=== PATIENT | female | born 1975 | race Two or more races ===

== ENCOUNTER 2019-09-06 14:43 | Emergency (ER) | payer MEDICAID ==
[2019-09-06 15:36] VITALS: BP 145/71
[2019-09-06 16:01] LABS: Urine Bacteria FEW /hpf (None Seen); Urine Blood Negative /uL (Negative); Urine Hyaline Cast FEW /lpf (0 - 2); Urine Mucus FEW (None Seen); Urine Specific Gravity 1.029 (1.001-1.035); Urine WBC 2 /hpf (0 - 5)
[2019-09-06 16:34] LABS: Basophils # (auto) 0 uL; Basophils % (auto) 0.1 % (0.0-2.0); Eosinophils # (auto) 0 uL; Hematocrit 43.5 % (36.0-46.0); Hemoglobin 14.9 g/dL (12.2-16.2); Lymphocytes # (auto) 1.3 uL; Lymphocytes % (auto) 8.6 % (10.0-50.0); Mean Corpuscular Hemoglobin 33.5 pg (28.0-32.0); Mean Corpuscular Hgb Conc. 34.2 g/dL (32.0-36.0); Mean Corpuscular Volume 97.8 fL (80.0-100.0); Monocytes # (auto) 0.8 uL; Monocytes % (auto) 5.1 % (0.0-12.0); Neutrophils # (auto) 13.6 uL; Neutrophils % (auto) 86.2 % (37.0-80.0); Platelet Count (auto) 216 10^3/uL (140-450); Red Blood Cells 4.45 10^6/uL (4.0-5.20); Red Cell Distribution Width 14.4 % (11.8-14.3); White Blood Cell 15.8 10^3/uL (4.4-10.8)
[2019-09-06 17:00] LABS: Albumin 3.4 g/dL (3.4-5.0); BUN/Creatinine Ratio 17.7
[2019-09-06 17:06] LABS: Potassium 3.5 mmol/L (3.5-5.1)
[2019-09-06 17:07] LABS: Bilirubin, Total 0.7 mg/dL (0.2-1.0); Total Protein 8.2 g/dL (6.4-8.2)
== END 2019-09-06 17:25 | disposition home or self-care (01) ==
LOC: ER 14:43 → EDSEX 14:43 → ER 17:25
DX: R10.11 Right upper quadrant pain (principal); R11.0 Nausea
CPT/HCPCS: 36415; 74176; 80053; 81001; 85025

== ENCOUNTER 2020-02-13 23:15 | Emergency (ER) | payer MEDICAID ==
[~2020-02-13] VITALS: Ht 149.9 cm; Wt 68.2 kg
[2020-02-14] LABS: Urine Bacteria FEW /hpf (None Seen); Urine Blood TRACE /uL (Negative); Urine Mucus FEW (None Seen); Urine Specific Gravity 1.016 (1.001-1.035); Urine WBC 1 /hpf (0 - 5)
[2020-02-14 00:14] LABS: Basophils # (auto) 0.1 10 ^3/uL (0-0.2); Basophils % (auto) 0.5 % (0.0-2.0); Eosinophils # (auto) 0 10 ^3/uL (0-0.8); Hematocrit 45.6 % (36.0-46.0); Hemoglobin 15.2 g/dL (12.2-16.2); Lymphocytes # (auto) 0.8 10 ^3/uL (0.4-5.4); Lymphocytes % (auto) 5.4 % (10.0-50.0); Mean Corpuscular Hemoglobin 32.9 pg (28.0-32.0); Mean Corpuscular Hgb Conc. 33.4 g/dL (32.0-36.0); Mean Corpuscular Volume 98.5 fL (80.0-100.0); Monocytes # (auto) 0.3 10 ^3/uL (0-1.3); Monocytes % (auto) 2.2 % (0.0-12.0); Neutrophils # (auto) 13.2 10 ^3/uL (1.6-8.6); Neutrophils % (auto) 91.9 % (37.0-80.0); Platelet Count (auto) 212 10^3/uL (140-450); Red Blood Cells 4.63 10^6/uL (4.0-5.20); Red Cell Distribution Width 15.2 % (11.8-14.3); White Blood Cell 14.4 10^3/uL (4.4-10.8)
[2020-02-14 00:24] LABS: Albumin 3.7 g/dL (3.4-5.0); Calcium 9.1 mg/dL (8.5-10.1)
[2020-02-14 00:30] LABS: Bilirubin, Total 0.5 mg/dL (0.2-1.0); Total Protein 8.9 g/dL (6.4-8.2)
[2020-02-14] MEDS ORDERED: cefTRIAXone SOD 1,000 MG VL IM ONE (00:45)
[2020-02-14] MEDS ORDERED: LIDOCAINE 1% HCL (LOCAL ANESTH.) INJ 20ML MDV ONE (01:06)
[2020-02-14] MEDS ORDERED: ACETAMINOPHEN 325 MG TAB PO ONE (01:15)
[2020-02-14] MEDS: LIDOCAINE 1% HCL (LOCAL ANESTH.) INJ 20ML MDV ID ONE ×2 (01:23→01:30)
[2020-02-14] MEDS ORDERED: IOHEXOL 300 MG/ML 100ML BOTTLE IJ ONE (01:39)
[2020-02-14 02:57] VITALS: BP 166/89
== END 2020-02-14 03:45 | disposition home or self-care (01) ==
LOC: ER 23:16
DX: K52.89 Other specified noninfective gastroenteritis and colitis (principal); R11.2 Nausea with vomiting, unspecified
CPT/HCPCS: 36415; 74176; 74177; 80053; 81001; 85025; 96372; J0696; J2001

== ENCOUNTER 2023-03-18 05:30 | Emergency (ER) | payer MEDICAID, OTHER ==
[~2023-03-18] VITALS: Ht 149.9 cm; Wt 49.2 kg
[2023-03-18] MEDS ORDERED: SODIUM CHLORIDE 0.9% 1,000 ML IV ONE (06:45)
[2023-03-18 07:02] LABS: Basophils # (auto) 0.1 10 ^3/uL (0-0.2); Basophils % (auto) 0.7 % (0.0-2.0); Eosinophils # (auto) 0.1 10 ^3/uL (0-0.8); Eosinophils % (auto) 1.4 % (0.0-7.0); Hematocrit 46.3 % (36.0-46.0); Hemoglobin 15.7 g/dL (12.2-16.2); Lymphocytes # (auto) 2.7 10 ^3/uL (0.4-5.4); Lymphocytes % (auto) 35.4 % (10.0-50.0); Mean Corpuscular Hemoglobin 33.4 pg (28.0-32.0); Mean Corpuscular Hgb Conc. 33.9 g/dL (32.0-36.0); Mean Corpuscular Volume 98.5 fL (80.0-100.0); Monocytes # (auto) 0.6 10 ^3/uL (0-1.3); Neutrophils # (auto) 4.2 10 ^3/uL (1.6-8.6); Neutrophils % (auto) 54.5 % (37.0-80.0); Nucleated Red Blood Cells % 0.1 %; Red Blood Cells 4.69 10^6/uL (4.0-5.20); Red Cell Distribution Width 16.3 % (11.8-14.3); White Blood Cell 7.7 10^3/uL (4.4-10.8)
[2023-03-18 07:10] LABS: Albumin 3.9 g/dL (3.4-5.0); Calcium 9.2 mg/dL (8.5-10.1)
[2023-03-18 07:13] LABS: BUN/Creatinine Ratio 16.9 (10.0-20.0); Bilirubin, Total 1.2 mg/dL (0.2-1.0); Total Protein 7.8 g/dL (6.4-8.2)
[2023-03-18 08:40] LABS: Urine Bacteria FEW /hpf (None Seen); Urine Blood Negative /uL (Negative); Urine Specific Gravity 1.012 (1.001-1.035); Urine WBC 2 /hpf (0 - 5)
[2023-03-18] MEDS ORDERED: CEPH-510 PO (11:14)
[2023-03-18] MEDS ORDERED: cefTRIAXone 1GM/50ML D5W 50 ML IV ONE (11:15)
[2023-03-18 12:20] VITALS: BP 132/84
== END 2023-03-18 12:27 | disposition home or self-care (01) ==
LOC: ER 05:30
DX: N39.0 Urinary tract infection, site not specified (principal); E03.9 Hypothyroidism, unspecified; Z79.899 Other long term (current) drug therapy
CPT/HCPCS: 36415; 74176; 76705; 80053; 81001; 83690; 85025; 96361; 96365; 99285; J0696; J7030

== ENCOUNTER 2023-06-23 05:06 | Emergency (ER) | payer MEDICAID, OTHER ==
[~2023-06-23] VITALS: Ht 147.3 cm; Wt 42.9 kg
[~2023-06-23 05:06] MED LIST: CEPH-510 PO
[2023-06-23 06:21] LABS: Urine Bacteria FEW /hpf (None Seen); Urine Blood Negative /uL (Negative); Urine Clarity Clear (Clear); Urine Color Colorless (Yellow); Urine Hyaline Cast FEW /lpf (0 - 2); Urine Protein, UAD Negative (Negative); Urine Specific Gravity 1.008 (1.001-1.035); Urine Urobilinogen Normal (Negative); Urine WBC 1 /hpf (0 - 5); Urine pH 5.5 (5.0-8.0)
[2023-06-23 06:22] LABS: Basophils # (auto) 0 10 ^3/uL (0-0.2); Basophils % (auto) 0.5 % (0.0-2.0); Eosinophils # (auto) 0 10 ^3/uL (0-0.8); Eosinophils % (auto) 0.7 % (0.0-7.0); Hematocrit 45.9 % (36.0-46.0); Hemoglobin 15.8 g/dL (12.2-16.2); Lymphocytes # (auto) 2.4 10 ^3/uL (0.4-5.4); Lymphocytes % (auto) 48.5 % (10.0-50.0); Mean Corpuscular Hemoglobin 33.6 pg (28.0-32.0); Mean Corpuscular Hgb Conc. 34.3 g/dL (32.0-36.0); Mean Corpuscular Volume 97.9 fL (80.0-100.0); Monocytes # (auto) 0.3 10 ^3/uL (0-1.3); Monocytes % (auto) 6.1 % (0.0-12.0); Neutrophils # (auto) 2.2 10 ^3/uL (1.6-8.6); Neutrophils % (auto) 44.2 % (37.0-80.0); Nucleated Red Blood Cells % 0.2 %; Red Blood Cells 4.69 10^6/uL (4.0-5.20); Red Cell Distribution Width 15.4 % (11.8-14.3)
[2023-06-23 06:45] LABS: Alkaline Phosphatase 60 U/L (46-116); Anion Gap 6.7 (5-15); Aspartate Aminotransferase 15 U/L (13-40); BUN/Creatinine Ratio 6.5 (10.0-20.0); Bilirubin, Total 0.8 mg/dL (0.2-1.0); Blood Urea Nitrogen 6 mg/dL (9-23); Calcium 9.8 mg/dL (8.7-10.4); Carbon Dioxide 29.3 mmol/L (20-30); Chloride 105 mmol/L (98-107); Glucose 89 mg/dL (74-106); Lipase 35 U/L (12-53); Potassium 3.6 mmol/L (3.5-5.1); Sodium 141 mmol/L (136-145); Total Protein 7.4 g/dL (5.7-8.2)
[2023-06-23 07:05] LABS: Alanine Aminotransferase < 9 U/L (7-40)
[2023-06-23] MEDS ORDERED: ONDANSETRON HCL 4 MG/2 ML VIAL IV ONE (08:30)
[2023-06-23] MEDS ORDERED: MORPHINE SULFATE INJ 2 MG/ml SYRG IV ONE (08:30)
[2023-06-23 09:00] VITALS: PULSE 71; RESP 13; TEMP 98.3; O2SAT 98
[2023-06-23 16:00] VITALS: BP 109/76; PULSE 69; RESP 8; O2SAT 96
== END 2023-06-23 17:04 | disposition home or self-care (01) ==
LOC: ER 05:06
DX: K80.20 Calculus of gallbladder without cholecystitis without obstruction (principal); E03.9 Hypothyroidism, unspecified; Z79.2 Long term (current) use of antibiotics
CPT/HCPCS: 36415; 76705; 80053; 81001; 83690; 85025; 96374; 96375; 99285; J2270; J2405

== ENCOUNTER 2023-07-11 14:16 | Inpatient (IN) | payer MEDICAID ==
[~2023-07-11] VITALS: Ht 144.8 cm; Wt 47.0 kg
[2023-07-11] MEDS ORDERED: HYDROmorphone HCL 2 MG/ML VL/or syr IM ONE (14:45)
[2023-07-11] MEDS ORDERED: ONDANSETRON ODT 4 MG TAB PO ONE (14:45)
[2023-07-11 15:16] LABS: Hemoglobin 15.3 g/dL (12.2-16.2); Mean Corpuscular Volume 97.5 fL (80.0-100.0)
[2023-07-11 15:18] LABS: Hematocrit 44.7 % (36.0-46.0); Mean Corpuscular Hemoglobin 33.4 pg (28.0-32.0); Mean Corpuscular Hgb Conc. 34.3 g/dL (32.0-36.0); Red Blood Cells 4.59 10^6/uL (4.0-5.20); Red Cell Distribution Width 16.4 % (11.8-14.3)
[2023-07-11 15:24] LABS: White Blood Cell 32.5 10^3/uL (4.4-10.8)
[2023-07-11 15:25] LABS: Basophils % (manual) 0 (0.0-2.0); Blast Cells 0; Eosinophils % (manual) 0 (0-7); Metamyelocytes % 0; Myelocytes % 0; Promyelocytes % 0; Reactive Lymphocytes 0
[2023-07-11 15:27] LABS: Alanine Aminotransferase 16 U/L (7-40); Albumin 4.2 g/dL (3.2-4.8); Alkaline Phosphatase 112 U/L (46-116); Anion Gap 10 (5-15); Aspartate Aminotransferase 30 U/L (13-40); BUN/Creatinine Ratio 18.3 (10.0-20.0); Blood Urea Nitrogen 21 mg/dL (9-23); Carbon Dioxide 26 mmol/L (20-30); Chloride 99 mmol/L (98-107); Glucose 100 mg/dL (74-106); Lactic Acid w/Reflex 3.3 mmol/L (0.4-2.0); Lipase 29 U/L (12-53); Potassium 4.1 mmol/L (3.5-5.1); Sodium 135 mmol/L (136-145)
[2023-07-11 15:28] LABS: Bilirubin, Total 0.5 mg/dL (0.2-1.0); Total Protein 7.1 g/dL (5.7-8.2)
[2023-07-11] MEDS ORDERED: PIPERACILLIN-TAZOB 3.375GM 100 ML IV ONE (15:45)
[2023-07-11] MEDS ORDERED: SODIUM CHLORIDE 0.9% 1,000 ML IV ONE ×2 (15:45→18:30)
[2023-07-11 15:54] LABS: CRP High Sensitivity > 20.00 mg/dL (<1.0)
[2023-07-11 16:27] LABS: INR 1.15 (0.9-1.15)
[2023-07-11 16:43] LABS: Anisocytosis Slight; Band Neutrophils % (manual) 8; Lymphocytes % (manual) 6 (10.0-50.0); Monocytes % (manual) 2 (0-12); Platelet Estimate Adequate
[2023-07-11 17:35] LABS: Urine Bacteria FEW /hpf (None Seen); Urine Blood Negative /uL (Negative); Urine Clarity HAZY (Clear); Urine Color Yellow (Yellow); Urine Protein, UAD TRACE (Negative); Urine Specific Gravity 1.031 (1.001-1.035); Urine Urobilinogen Normal (Negative); Urine WBC 3 /hpf (0 - 5)
[2023-07-11] MEDS ORDERED: HYDROmorphone HCL 2 MG/ML VL/or syr IV ONE (18:45)
[2023-07-11] MEDS ORDERED: ONDANSETRON HCL 4 MG/2 ML VIAL IV ONE (18:45)
[2023-07-11 18:50] VITALS: PULSE 77; RESP 13; O2SAT 98
[2023-07-11 19:43] VITALS: PULSE 84; RESP 10; O2SAT 100
[2023-07-11] MEDS ORDERED: VANCOMYCIN PER PHARMACY 0 MG IV SCH ×2 (20:30→23:15)
[2023-07-11] MEDS ORDERED: VANCOMYCIN 500 MG in D5W 5% 100 ML IV ONE (20:45)
[2023-07-11] MEDS ORDERED: MORPHINE SULFATE INJ 2 MG/ml SYRG IV PRN (23:15)
[2023-07-11] MEDS ORDERED: NITROGLYCERIN 0.4 MG SL TAB SL PRN (23:15)
[2023-07-12] MEDS ORDERED: DEXTROSE (50%) 50ML SYRG IV PRN
[2023-07-12] MEDS: SODIUM CHLORIDE 0.9% 1,000 ML IV SCH ×3 (00:29→14:30)
[2023-07-12] MEDS: PIPERACILLIN-TAZOB 3.375GM 100 ML IV SCH ×4 (00:30→21:15)
[2023-07-12] MEDS: InsuLIN REG 1unit/0.01ml Soln (100units/ml) SC SCH ×4 (01:00→18:00)
[2023-07-12] MEDS: ACCU-CHEK COMFORT CURVE STRIP VI SCH ×4 (01:00→18:00)
[2023-07-12] MEDS ORDERED: CHOL20007 PO (04:10)
[2023-07-12] MEDS ORDERED: KET30I PO (04:11)
[2023-07-12] MEDS ORDERED: KET30I IM (04:11)
[2023-07-12] MEDS ORDERED: GABA-1250 PO (04:12)
[2023-07-12] MEDS ORDERED: LEVO150T10 PO (04:12)
[2023-07-12 06:00] VITALS: BP 125/65; PULSE 91; RESP 19; TEMP 98.4; O2SAT 98
[2023-07-12] MEDS: GABAPENTIN 300 MG CAP PO SCH ×3 (06:28→21:14)
[2023-07-12] MEDS: LEVOTHYROXINE SODIUM 50 MCG TAB PO SCH (06:28)
[2023-07-12 06:44] LABS: Alkaline Phosphatase 82 U/L (46-116); Anion Gap 5 (5-15); Blood Urea Nitrogen 10 mg/dL (9-23); Carbon Dioxide 26 mmol/L (20-30); Glucose 82 mg/dL (74-106); Potassium 3.5 mmol/L (3.5-5.1); Sodium 141 mmol/L (136-145)
[2023-07-12 06:45] LABS: Albumin 3.1 g/dL (3.2-4.8); Aspartate Aminotransferase 12 U/L (13-40); Bilirubin, Total 0.3 mg/dL (0.2-1.0); Total Protein 5.3 g/dL (5.7-8.2)
[2023-07-12 06:49] LABS: Alanine Aminotransferase < 9 U/L (7-40); Chloride 110 mmol/L (98-107)
[2023-07-12 07:28] LABS: Bilirubin, Direct 0.1 mg/dL (<0.3)
[2023-07-12 07:40] LABS: Basophils # (auto) 0 10 ^3/uL (0-0.2); Basophils % (auto) 0.2 % (0.0-2.0); Eosinophils # (auto) 0.1 10 ^3/uL (0-0.8); Eosinophils % (auto) 0.3 % (0.0-7.0); Hematocrit 37.4 % (36.0-46.0); Hemoglobin 12.6 g/dL (12.2-16.2); Lymphocytes # (auto) 1.8 10 ^3/uL (0.4-5.4); Lymphocytes % (auto) 7.5 % (10.0-50.0); Mean Corpuscular Hgb Conc. 33.8 g/dL (32.0-36.0); Mean Corpuscular Volume 97.6 fL (80.0-100.0); Monocytes # (auto) 0.8 10 ^3/uL (0-1.3); Monocytes % (auto) 3.5 % (0.0-12.0); Neutrophils # (auto) 21.3 10 ^3/uL (1.6-8.6); Neutrophils % (auto) 88.5 % (37.0-80.0); Red Blood Cells 3.83 10^6/uL (4.0-5.20); Red Cell Distribution Width 16.1 % (11.8-14.3); White Blood Cell 24.1 10^3/uL (4.4-10.8)
[2023-07-12 08:00] VITALS: PULSE 60; PULSE 63; RESP 17; O2SAT 97
[2023-07-12 09:00] VITALS: BP 140/76; PULSE 60; RESP 17; TEMP 98.2; O2SAT 97
[2023-07-12] MEDS ORDERED: VANCOMYCIN 500 MG in D5W 5% 100 ML IV SCH (09:00)
[2023-07-12] MEDS: ENOXAPARIN SOD 40 MG/0.4 ML SYRINGE SC SCH (11:02)
[2023-07-12] MEDS: MORPHINE SULFATE INJ 2 MG/ml SYRG IV PRN (11:58)
[2023-07-12 13:00] VITALS: BP 112/60; PULSE 53; RESP 14; TEMP 98.4; O2SAT 100
[2023-07-12] MEDS ORDERED: CLINIMIX PER PHARMACY 0 ML IV SCH (13:45)
[2023-07-12] MEDS ORDERED: PIPERACILLIN-TAZOB 3.375GM 100 ML IV SCH (14:00)
[2023-07-12 14:54] LABS: Phosphorus 2.6 mg/dL (2.4-5.1)
[2023-07-12 15:03] LABS: Magnesium 1.7 mg/dL (1.6-2.6); Magnesium 1.9 mg/dL (1.6-2.6)
[2023-07-12 17:00] VITALS: BP 137/78; PULSE 79; RESP 16; TEMP 98.3; O2SAT 99
[2023-07-12 20:00] VITALS: PULSE 96; RESP 18
[2023-07-12] MEDS ORDERED: AMINO ACID INFUSION IN D10W 1,000 ML IV NR (20:00)
[2023-07-12] MEDS: PANTOPRAZOLE 40 MG/10 ML VIAL INJ IV SCH (21:14)
[2023-07-13] VITALS (8 sets, daily range): BP systolic 83–133; BP diastolic 41–76; PULSE 45–62; RESP 17–22; TEMP 97.2–97.8; O2SAT 97–100
[2023-07-13] MEDS: ACETAMINOPHEN 325 MG TAB PO PRN ×2 (04:19→20:19)
[2023-07-13] MEDS: SODIUM CHLORIDE 0.9% 1,000 ML IV SCH (04:58)
[2023-07-13] MEDS: GABAPENTIN 300 MG CAP PO SCH ×3 (05:21→21:11)
[2023-07-13] MEDS: PIPERACILLIN-TAZOB 3.375GM 100 ML IV SCH (05:22)
[2023-07-13] MEDS: ACCU-CHEK COMFORT CURVE STRIP VI SCH ×5 (05:22→23:55)
[2023-07-13] MEDS: InsuLIN REG 1unit/0.01ml Soln (100units/ml) SC SCH ×5 (05:26→23:55)
[2023-07-13] MEDS: LEVOTHYROXINE SODIUM 50 MCG TAB PO SCH (06:08)
[2023-07-13 08:49] LABS: Basophils # (auto) 0.1 10 ^3/uL (0-0.2); Basophils % (auto) 0.3 % (0.0-2.0); Eosinophils # (auto) 0.1 10 ^3/uL (0-0.8); Eosinophils % (auto) 0.2 % (0.0-7.0); Hematocrit 37.3 % (36.0-46.0); Hemoglobin 12.6 g/dL (12.2-16.2); Lymphocytes # (auto) 1.9 10 ^3/uL (0.4-5.4); Lymphocytes % (auto) 7.9 % (10.0-50.0); Mean Corpuscular Hemoglobin 32.9 pg (28.0-32.0); Mean Corpuscular Hgb Conc. 33.7 g/dL (32.0-36.0); Mean Corpuscular Volume 97.8 fL (80.0-100.0); Monocytes # (auto) 1.2 10 ^3/uL (0-1.3); Monocytes % (auto) 4.9 % (0.0-12.0); Neutrophils # (auto) 20.8 10 ^3/uL (1.6-8.6); Neutrophils % (auto) 86.7 % (37.0-80.0); Red Blood Cells 3.82 10^6/uL (4.0-5.20); Red Cell Distribution Width 16.5 % (11.8-14.3); White Blood Cell 24.1 10^3/uL (4.4-10.8)
[2023-07-13 09:10] LABS: Albumin 2.7 g/dL (3.2-4.8); Alkaline Phosphatase 82 U/L (46-116); Anion Gap 3 (5-15); Aspartate Aminotransferase 11 U/L (13-40); BUN/Creatinine Ratio 6.7 (10.0-20.0); Blood Urea Nitrogen 6 mg/dL (9-23); Calcium 8.1 mg/dL (8.7-10.4); Carbon Dioxide 29 mmol/L (20-30); Chloride 108 mmol/L (98-107); Glucose 110 mg/dL (74-106); Magnesium 1.8 mg/dL (1.6-2.6); Phosphorus 2.7 mg/dL (2.4-5.1); Potassium 3.4 mmol/L (3.5-5.1); Sodium 140 mmol/L (136-145)
[2023-07-13 09:11] LABS: Bilirubin, Total 0.4 mg/dL (0.2-1.0); Total Protein 5.3 g/dL (5.7-8.2)
[2023-07-13 09:14] LABS: Alanine Aminotransferase < 9 U/L (7-40)
[2023-07-13] MEDS ORDERED: POTASSIUM CHL 20MEQ/100ML 100 ML IV ONE (10:00)
[2023-07-13] MEDS: PANTOPRAZOLE 40 MG/10 ML VIAL INJ IV SCH ×2 (11:05→21:11)
[2023-07-13] MEDS: ENOXAPARIN SOD 40 MG/0.4 ML SYRINGE SC SCH (11:05)
[2023-07-13] MEDS: SOD CHL 0.9%/ KCL 20MEQ 1,000 ML IV SCH (14:32)
[2023-07-13] MEDS: VANCOMYCIN HCL 500MG/5ML ORAL SOL PO SCH ×2 (17:18→21:11)
[2023-07-13] MEDS: AMINO ACID INFUSION IN D10W 1,000 ML IV NR (19:47)
[2023-07-14] VITALS (8 sets, daily range): BP systolic 116–131; BP diastolic 64–83; PULSE 44–100; RESP 16–98; TEMP 97–98.6; O2SAT 90–99
[2023-07-14] MEDS: ACETAMINOPHEN 325 MG TAB PO PRN (02:24)
[2023-07-14] MEDS: VANCOMYCIN HCL 500MG/5ML ORAL SOL PO SCH ×4 (05:14→21:31)
[2023-07-14] MEDS: GABAPENTIN 300 MG CAP PO SCH ×3 (05:14→21:30)
[2023-07-14] MEDS: ACCU-CHEK COMFORT CURVE STRIP VI SCH ×3 (05:14→18:17)
[2023-07-14] MEDS: InsuLIN REG 1unit/0.01ml Soln (100units/ml) SC SCH ×3 (05:21→18:00)
[2023-07-14] MEDS: LEVOTHYROXINE SODIUM 50 MCG TAB PO SCH (05:56)
[2023-07-14 09:25] LABS: Hematocrit 38.8 % (36.0-46.0); Mean Corpuscular Hemoglobin 32.9 pg (28.0-32.0); Mean Corpuscular Hgb Conc. 33.5 g/dL (32.0-36.0); Mean Corpuscular Volume 98.5 fL (80.0-100.0); Red Blood Cells 3.94 10^6/uL (4.0-5.20); Red Cell Distribution Width 16.9 % (11.8-14.3)
[2023-07-14 09:26] LABS: Basophils % (manual) 0 (0.0-2.0); Blast Cells 0; Eosinophils % (manual) 0 (0-7); Metamyelocytes % 0; Myelocytes % 0; Promyelocytes % 0; Reactive Lymphocytes 0
[2023-07-14] MEDS: PANTOPRAZOLE 40 MG/10 ML VIAL INJ IV SCH ×2 (09:45→21:30)
[2023-07-14] MEDS: SOD CHL 0.9%/ KCL 20MEQ 1,000 ML IV SCH (09:45)
[2023-07-14] MEDS: ENOXAPARIN SOD 40 MG/0.4 ML SYRINGE SC SCH (09:45)
[2023-07-14 10:01] LABS: Band Neutrophils % (manual) 2; Lymphocytes % (manual) 14 (10.0-50.0); Monocytes % (manual) 2 (0-12)
[2023-07-14 10:02] LABS: Platelet Estimate Adequate
[2023-07-14 10:15] LABS: Albumin 2.9 g/dL (3.2-4.8); Alkaline Phosphatase 75 U/L (46-116); Anion Gap 4 (5-15); Aspartate Aminotransferase 14 U/L (13-40); Calcium 8.4 mg/dL (8.7-10.4); Carbon Dioxide 27 mmol/L (20-30); Chloride 110 mmol/L (98-107); Glucose 93 mg/dL (74-106); Magnesium 1.7 mg/dL (1.6-2.6); Potassium 3.5 mmol/L (3.5-5.1); Sodium 141 mmol/L (136-145)
[2023-07-14 10:16] LABS: Bilirubin, Total 0.3 mg/dL (0.2-1.0); Total Protein 5.6 g/dL (5.7-8.2)
[2023-07-14 10:17] LABS: Alanine Aminotransferase < 9 U/L (7-40); BUN/Creatinine Ratio 8.3 (10.0-20.0); Blood Urea Nitrogen < 5 mg/dL (9-23)
[2023-07-14] MEDS ORDERED: POTASSIUM PHOSPHATE 44 MEQ in D5W 5% 250 ML IV ONE (13:00)
[2023-07-14] MEDS: AMINO ACID INFUSION IN D10W 1,000 ML IV NR (19:29)
[2023-07-15] VITALS (7 sets, daily range): BP systolic 108–134; BP diastolic 60–82; PULSE 42–80; RESP 16–22; TEMP 97.1–98.3; O2SAT 99–100
[2023-07-15] MEDS: ACCU-CHEK COMFORT CURVE STRIP VI SCH ×4 (00:21→17:28)
[2023-07-15] MEDS: VANCOMYCIN HCL 500MG/5ML ORAL SOL PO SCH ×4 (05:03→21:44)
[2023-07-15] MEDS: GABAPENTIN 300 MG CAP PO SCH ×3 (05:03→21:44)
[2023-07-15] MEDS: InsuLIN REG 1unit/0.01ml Soln (100units/ml) SC SCH ×4 (05:15→17:28)
[2023-07-15] MEDS: LEVOTHYROXINE SODIUM 50 MCG TAB PO SCH (05:50)
[2023-07-15] MEDS: SOD CHL 0.9%/ KCL 20MEQ 1,000 ML IV SCH (06:00)
[2023-07-15 06:34] LABS: Hematocrit 38.1 % (36.0-46.0); Hemoglobin 13.2 g/dL (12.2-16.2); Mean Corpuscular Hemoglobin 33.4 pg (28.0-32.0); Mean Corpuscular Hgb Conc. 34.7 g/dL (32.0-36.0); Mean Corpuscular Volume 96.3 fL (80.0-100.0); Red Blood Cells 3.95 10^6/uL (4.0-5.20); Red Cell Distribution Width 16.3 % (11.8-14.3); White Blood Cell 9.2 10^3/uL (4.4-10.8)
[2023-07-15 06:44] LABS: Basophils % (manual) 0 (0.0-2.0); Blast Cells 0; Eosinophils % (manual) 0 (0-7); Metamyelocytes % 0; Myelocytes % 0; Promyelocytes % 0; Reactive Lymphocytes 0
[2023-07-15 06:53] LABS: Alkaline Phosphatase 68 U/L (46-116); Anion Gap 4 (5-15); BUN/Creatinine Ratio 10.8 (10.0-20.0); Blood Urea Nitrogen 7 mg/dL (9-23); Calcium 8.4 mg/dL (8.7-10.4); Carbon Dioxide 30 mmol/L (20-30); Chloride 107 mmol/L (98-107); Glucose 109 mg/dL (74-106); Magnesium 1.7 mg/dL (1.6-2.6); Sodium 141 mmol/L (136-145)
[2023-07-15 06:54] LABS: Albumin 2.9 g/dL (3.2-4.8)
[2023-07-15 06:55] LABS: Alanine Aminotransferase < 9 U/L (7-40); Aspartate Aminotransferase 11 U/L (13-40); Bilirubin, Total 0.3 mg/dL (0.2-1.0); Phosphorus 1.4 mg/dL (2.4-5.1); Total Protein 5.6 g/dL (5.7-8.2)
[2023-07-15 06:57] LABS: Potassium 2.9 mmol/L (3.5-5.1)
[2023-07-15 07:43] LABS: Band Neutrophils % (manual) 12; Lymphocytes % (manual) 21 (10.0-50.0); Monocytes % (manual) 2 (0-12); Platelet Estimate Adequate
[2023-07-15] MEDS ORDERED: POTASSIUM CHLORIDE 40 MEQ, LIDOCAINE 1% (LOCAL ANESTH.) 4 ML in SODIUM CHL 0.9% 250 ML IV ONE (09:30)
[2023-07-15] MEDS: MORPHINE SULFATE INJ 2 MG/ml SYRG IV PRN (12:30)
[2023-07-15] MEDS ORDERED: MORPHINE SULFATE INJ 2 MG/ml SYRG IV ONE (12:45)
[2023-07-15] MEDS: PANTOPRAZOLE 40 MG/10 ML VIAL INJ IV SCH ×2 (13:44→21:43)
[2023-07-15] MEDS: ENOXAPARIN SOD 40 MG/0.4 ML SYRINGE SC SCH (13:44)
[2023-07-15] MEDS ORDERED: POTASSIUM PHOSPHATE 44 MEQ in D5W 5% 250 ML IV ONE (14:30)
[2023-07-15] MEDS: MAGNESIUM SULFATE 1GM/100ML 100 ML IV SCH ×2 (20:00→21:36)
[2023-07-15] MEDS ORDERED: AMINO ACID INFUSION IN D10W 1,000 ML IV NR (20:00)
[2023-07-16] VITALS (7 sets, daily range): BP systolic 107–126; BP diastolic 54–74; PULSE 45–100; RESP 17–18; TEMP 96.3–98.2; O2SAT 93–100
[2023-07-16] MEDS: SOD CHL 0.9%/ KCL 20MEQ 1,000 ML IV SCH (02:00)
[2023-07-16] MEDS: LEVOTHYROXINE SODIUM 50 MCG TAB PO SCH (06:47)
[2023-07-16] MEDS: GABAPENTIN 300 MG CAP PO SCH ×3 (06:47→21:26)
[2023-07-16] MEDS: InsuLIN REG 1unit/0.01ml Soln (100units/ml) SC SCH ×4 (06:48→17:53)
[2023-07-16] MEDS: ACCU-CHEK COMFORT CURVE STRIP VI SCH ×4 (06:48→17:52)
[2023-07-16] MEDS: VANCOMYCIN HCL 500MG/5ML ORAL SOL PO SCH ×4 (06:48→21:26)
[2023-07-16 09:36] LABS: INR 1.13 (0.9-1.15); Prothrombin Time 11.8 sec (9.3-11.8)
[2023-07-16 09:55] LABS: Hematocrit 40.6 % (36.0-46.0); Hemoglobin 13.4 g/dL (12.2-16.2); Mean Corpuscular Hemoglobin 32.8 pg (28.0-32.0); Mean Corpuscular Hgb Conc. 33.1 g/dL (32.0-36.0); Mean Corpuscular Volume 99.4 fL (80.0-100.0); Red Blood Cells 4.09 10^6/uL (4.0-5.20); Red Cell Distribution Width 16.6 % (11.8-14.3); White Blood Cell 7.3 10^3/uL (4.4-10.8)
[2023-07-16 09:58] LABS: Alkaline Phosphatase 57 U/L (46-116); Anion Gap 6 (5-15); Aspartate Aminotransferase 19 U/L (13-40); Calcium 8.4 mg/dL (8.5-10.1); Carbon Dioxide 27 mmol/L (20-30); Chloride 110 mmol/L (98-107); Glucose 119 mg/dL (74-106); Potassium 4.2 mmol/L (3.5-5.1); Sodium 143 mmol/L (136-145)
[2023-07-16 09:59] LABS: Bilirubin, Total 0.3 mg/dL (0.2-1.0); Phosphorus 4.2 mg/dL (2.4-5.1); Total Protein 5.7 g/dL (5.7-8.2)
[2023-07-16 10:15] LABS: Magnesium 2.1 mg/dL (1.6-2.6)
[2023-07-16 10:25] LABS: Alanine Aminotransferase < 9 U/L (7-40); BUN/Creatinine Ratio 9.4 (10.0-20.0); Blood Urea Nitrogen < 5 mg/dL (9-23)
[2023-07-16 10:28] LABS: Basophils % (manual) 0 (0.0-2.0); Blast Cells 0; Myelocytes % 0; Promyelocytes % 0; Reactive Lymphocytes 0
[2023-07-16] MEDS: ENOXAPARIN SOD 40 MG/0.4 ML SYRINGE SC SCH (11:06)
[2023-07-16] MEDS: PANTOPRAZOLE 40 MG/10 ML VIAL INJ IV SCH (11:07)
[2023-07-16] MEDS: MORPHINE SULFATE INJ 2 MG/ml SYRG IV PRN (11:29)
[2023-07-16 11:58] LABS: Band Neutrophils % (manual) 6; Eosinophils % (manual) 2 (0-7); Lymphocytes % (manual) 25 (10.0-50.0); Metamyelocytes % 3; Monocytes % (manual) 6 (0-12)
[2023-07-16 11:59] LABS: Platelet Estimate Adequate
[2023-07-17] MEDS: GABAPENTIN 300 MG CAP PO SCH ×4 (05:31→21:25)
[2023-07-17] MEDS: VANCOMYCIN HCL 500MG/5ML ORAL SOL PO SCH ×2 (05:31→11:42)
[2023-07-17] MEDS: InsuLIN REG 1unit/0.01ml Soln (100units/ml) SC SCH ×4 (05:49→17:44)
[2023-07-17] MEDS: ACCU-CHEK COMFORT CURVE STRIP VI SCH ×4 (05:49→17:37)
[2023-07-17 05:52] VITALS: BP 131/76; PULSE 49; RESP 18; TEMP 98.1; O2SAT 100
[2023-07-17] MEDS: LEVOTHYROXINE SODIUM 50 MCG TAB PO SCH (06:00)
[2023-07-17 08:00] VITALS: PULSE 37; PULSE 68; RESP 16
[2023-07-17 08:40] VITALS: BP 118/64; PULSE 56; RESP 16; TEMP 97.5; O2SAT 100
[2023-07-17] MEDS: ENOXAPARIN SOD 40 MG/0.4 ML SYRINGE SC SCH (09:06)
[2023-07-17] MEDS ORDERED: HYDROcodone-ACET 5/325MG TAB PO PRN (12:00)
[2023-07-17 12:40] VITALS: BP 120/68; PULSE 52; RESP 16; TEMP 97.6; O2SAT 100
[2023-07-17] MEDS: HYDROcodone-ACET 5/325MG TAB PO PRN ×2 (12:41→22:15)
[2023-07-17] MEDS: VANCOMYCIN HCL 125MG/5ML ORAL SOL PO SCH ×2 (17:45→21:25)
[2023-07-17 20:00] VITALS: PULSE 55
[2023-07-18] VITALS (7 sets, daily range): BP systolic 112–139; BP diastolic 54–98; PULSE 42–75; RESP 16–19; TEMP 98.1–98.5; O2SAT 95–100
[2023-07-18] MEDS: InsuLIN REG 1unit/0.01ml Soln (100units/ml) SC SCH ×5 (05:53→23:18)
[2023-07-18] MEDS: VANCOMYCIN HCL 125MG/5ML ORAL SOL PO SCH ×4 (05:53→21:45)
[2023-07-18] MEDS: GABAPENTIN 300 MG CAP PO SCH ×3 (05:53→21:45)
[2023-07-18] MEDS: ACCU-CHEK COMFORT CURVE STRIP VI SCH ×5 (05:53→23:18)
[2023-07-18] MEDS: LEVOTHYROXINE SODIUM 50 MCG TAB PO SCH (05:53)
[2023-07-18] MEDS: ONDANSETRON HCL 4 MG/2 ML VIAL IV PRN ×2 (08:16→23:18)
[2023-07-18] MEDS: MORPHINE SULFATE INJ 2 MG/ml SYRG IV PRN (08:17)
[2023-07-18 08:38] LABS: Alanine Aminotransferase 20 U/L (7-40); Alkaline Phosphatase 69 U/L (46-116); Anion Gap 5 (5-15); Aspartate Aminotransferase 32 U/L (13-40); BUN/Creatinine Ratio 14.3 (10.0-20.0); Blood Urea Nitrogen 7 mg/dL (9-23); Calcium 8.5 mg/dL (8.5-10.1); Carbon Dioxide 28 mmol/L (20-30); Chloride 109 mmol/L (98-107); Glucose 85 mg/dL (74-106); Potassium 4.3 mmol/L (3.5-5.1); Sodium 142 mmol/L (136-145)
[2023-07-18 08:39] LABS: Bilirubin, Total 0.5 mg/dL (0.2-1.0); Total Protein 5.6 g/dL (5.7-8.2)
[2023-07-18 08:40] LABS: Basophils # (auto) 0.1 10 ^3/uL (0-0.2); Basophils % (auto) 0.8 % (0.0-2.0); Eosinophils # (auto) 0.1 10 ^3/uL (0-0.8); Hematocrit 39.8 % (36.0-46.0); Hemoglobin 13.6 g/dL (12.2-16.2); Lymphocytes # (auto) 1.1 10 ^3/uL (0.4-5.4); Lymphocytes % (auto) 16.1 % (10.0-50.0); Mean Corpuscular Hemoglobin 33.3 pg (28.0-32.0); Mean Corpuscular Hgb Conc. 34.1 g/dL (32.0-36.0); Mean Corpuscular Volume 97.7 fL (80.0-100.0); Monocytes # (auto) 0.4 10 ^3/uL (0-1.3); Monocytes % (auto) 6.3 % (0.0-12.0); Neutrophils % (auto) 75.8 % (37.0-80.0); Nucleated Red Blood Cells % 0.1 %; Red Blood Cells 4.07 10^6/uL (4.0-5.20); Red Cell Distribution Width 16.5 % (11.8-14.3); White Blood Cell 6.6 10^3/uL (4.4-10.8)
[2023-07-18] MEDS: ENOXAPARIN SOD 40 MG/0.4 ML SYRINGE SC SCH (10:24)
[2023-07-18] MEDS: HYDROcodone-ACET 5/325MG TAB PO PRN ×2 (15:51→23:18)
[2023-07-18] MEDS ORDERED: TPN PER PHARMACY 0 ML IV SCH (16:00)
[2023-07-18] MEDS ORDERED: AMINO ACID INFUSION IN D10W 1,000 ML IV NR (20:00)
[2023-07-19] VITALS (7 sets, daily range): BP systolic 107–149; BP diastolic 63–97; PULSE 46–109; RESP 15–20; TEMP 98.1–102.7; O2SAT 93–100
[2023-07-19] MEDS: ACCU-CHEK COMFORT CURVE STRIP VI SCH ×4 (05:16→23:29)
[2023-07-19] MEDS: VANCOMYCIN HCL 125MG/5ML ORAL SOL PO SCH ×4 (05:16→22:41)
[2023-07-19] MEDS: GABAPENTIN 300 MG CAP PO SCH ×3 (05:16→22:41)
[2023-07-19] MEDS: LEVOTHYROXINE SODIUM 50 MCG TAB PO SCH (05:16)
[2023-07-19] MEDS: InsuLIN REG 1unit/0.01ml Soln (100units/ml) SC SCH ×4 (05:16→23:29)
[2023-07-19] MEDS: HYDROcodone-ACET 5/325MG TAB PO PRN ×2 (05:17→12:59)
[2023-07-19 05:56] LABS: Basophils # (auto) 0.1 10 ^3/uL (0-0.2); Basophils % (auto) 0.8 % (0.0-2.0); Eosinophils # (auto) 0 10 ^3/uL (0-0.8); Eosinophils % (auto) 0.3 % (0.0-7.0); Hematocrit 34.8 % (36.0-46.0); Hemoglobin 11.8 g/dL (12.2-16.2); Lymphocytes # (auto) 0.8 10 ^3/uL (0.4-5.4); Lymphocytes % (auto) 12.1 % (10.0-50.0); Mean Corpuscular Hemoglobin 32.8 pg (28.0-32.0); Mean Corpuscular Hgb Conc. 33.9 g/dL (32.0-36.0); Mean Corpuscular Volume 96.7 fL (80.0-100.0); Monocytes # (auto) 0.3 10 ^3/uL (0-1.3); Monocytes % (auto) 5.2 % (0.0-12.0); Neutrophils # (auto) 5.2 10 ^3/uL (1.6-8.6); Neutrophils % (auto) 81.6 % (37.0-80.0); Nucleated Red Blood Cells % 0.1 %; Red Cell Distribution Width 15.9 % (11.8-14.3); White Blood Cell 6.3 10^3/uL (4.4-10.8)
[2023-07-19 06:02] LABS: Alanine Aminotransferase 15 U/L (7-40); Albumin 2.9 g/dL (3.2-4.8); Alkaline Phosphatase 65 U/L (46-116); Anion Gap 3 (5-15); Aspartate Aminotransferase 26 U/L (13-40); BUN/Creatinine Ratio 7.1 (10.0-20.0); Blood Urea Nitrogen 5 mg/dL (9-23); Calcium 8.4 mg/dL (8.5-10.1); Carbon Dioxide 31 mmol/L (20-30); Chloride 104 mmol/L (98-107); Glucose 105 mg/dL (74-106); Potassium 3.8 mmol/L (3.5-5.1); Sodium 138 mmol/L (136-145)
[2023-07-19 06:03] LABS: Bilirubin, Total 0.3 mg/dL (0.2-1.0); Phosphorus 3.3 mg/dL (2.4-5.1); Total Protein 5.5 g/dL (5.7-8.2)
[2023-07-19 06:13] LABS: INR 1.23 (0.9-1.15); Prothrombin Time 12.7 sec (9.3-11.8)
[2023-07-19 06:29] LABS: Magnesium 1.6 mg/dL (1.6-2.6)
[2023-07-19 07:39] LABS: Triglycerides 74 mg/dL (< 150)
[2023-07-19] MEDS: ENOXAPARIN SOD 40 MG/0.4 ML SYRINGE SC SCH (10:11)
[2023-07-19] MEDS: cefTRIAXone 1GM/50ML D5W 50 ML IV SCH (10:12)
[2023-07-19] MEDS: MAGNESIUM SULFATE 1GM/100ML 100 ML IV SCH ×2 (11:45→13:02)
[2023-07-19] MEDS ORDERED: LIDOCAINE 1% (LOCAL ANESTH.) PF 5ml SDV ID ONE (19:30)
[2023-07-19] MEDS ORDERED: TPN PER PHARMACY IV NR ×9 (20:00)
[2023-07-19] MEDS: ACETAMINOPHEN 325 MG TAB PO PRN (20:30)
[2023-07-19] MEDS: SODIUM CHLOR 0.9% PF (SALINE LOCK) 10ML VIAL/SYR IV SCH (22:00)
[2023-07-19] MEDS: metroNIDAZOLE 500 MG TAB PO SCH (22:41)
[2023-07-20] VITALS (7 sets, daily range): BP systolic 90–115; BP diastolic 45–73; PULSE 47–98; RESP 16–18; TEMP 97.7–98.4; O2SAT 93–100
[2023-07-20] MEDS: SODIUM CHLORIDE 0.9% 1,000 ML IV SCH ×2 (05:00→20:33)
[2023-07-20] MEDS ORDERED: SODIUM CHLORIDE 0.9% 500 ML IV ONE (05:00)
[2023-07-20] MEDS: InsuLIN REG 1unit/0.01ml Soln (100units/ml) SC SCH ×3 (05:31→17:04)
[2023-07-20] MEDS: ACCU-CHEK COMFORT CURVE STRIP VI SCH ×4 (05:31→23:59)
[2023-07-20] MEDS: VANCOMYCIN HCL 125MG/5ML ORAL SOL PO SCH ×4 (05:51→21:25)
[2023-07-20] MEDS: GABAPENTIN 300 MG CAP PO SCH ×3 (05:51→21:24)
[2023-07-20] MEDS: metroNIDAZOLE 500 MG TAB PO SCH ×3 (05:51→21:24)
[2023-07-20] MEDS: LEVOTHYROXINE SODIUM 50 MCG TAB PO SCH (05:52)
[2023-07-20 06:46] LABS: Alanine Aminotransferase 12 U/L (7-40); Alkaline Phosphatase 72 U/L (46-116); Anion Gap 2 (5-15); Aspartate Aminotransferase 21 U/L (13-40); BUN/Creatinine Ratio 12.9 (10.0-20.0); Blood Urea Nitrogen 8 mg/dL (9-23); Calcium 7.8 mg/dL (8.7-10.4); Carbon Dioxide 32 mmol/L (20-30); Chloride 103 mmol/L (98-107); Glucose 99 mg/dL (74-106); Magnesium 2.2 mg/dL (1.6-2.6); Sodium 137 mmol/L (136-145)
[2023-07-20 06:47] LABS: Bilirubin, Total 0.2 mg/dL (0.2-1.0); Phosphorus 3.4 mg/dL (2.4-5.1); Total Protein 5.7 g/dL (5.7-8.2)
[2023-07-20] MEDS: cefTRIAXone 1GM/50ML D5W 50 ML IV SCH (10:08)
[2023-07-20] MEDS: ENOXAPARIN SOD 40 MG/0.4 ML SYRINGE SC SCH (10:09)
[2023-07-20] MEDS: SODIUM CHLOR 0.9% PF (SALINE LOCK) 10ML VIAL/SYR IV SCH ×2 (10:09→20:33)
[2023-07-20] MEDS: ONDANSETRON HCL 4 MG/2 ML VIAL IV PRN (12:40)
[2023-07-20] MEDS: HYDROcodone-ACET 5/325MG TAB PO PRN ×2 (14:55→21:33)
[2023-07-20] MEDS ORDERED: FAT EMULSION IV NR ×11 (20:00)
[2023-07-20] MEDS ORDERED: SODIUM CHLORIDE IV NR ×11 (20:00)
[2023-07-20] MEDS ORDERED: [UNRECOGNIZED DRUG - OTHER] IV NR ×11 (20:00)
[2023-07-20] MEDS ORDERED: POTASSIUM CHLORIDE IV NR ×11 (20:00)
[2023-07-21] VITALS (7 sets, daily range): BP systolic 106–138; BP diastolic 47–77; PULSE 51–79; RESP 17–20; TEMP 97.8–98.8; O2SAT 93–100
[2023-07-21] MEDS: InsuLIN REG 1unit/0.01ml Soln (100units/ml) SC SCH ×3 (06:00→12:00)
[2023-07-21] MEDS: GABAPENTIN 300 MG CAP PO SCH ×3 (06:03→21:46)
[2023-07-21] MEDS: metroNIDAZOLE 500 MG TAB PO SCH ×3 (06:03→21:46)
[2023-07-21] MEDS: LEVOTHYROXINE SODIUM 50 MCG TAB PO SCH (06:03)
[2023-07-21] MEDS: VANCOMYCIN HCL 125MG/5ML ORAL SOL PO SCH ×4 (06:04→21:48)
[2023-07-21] MEDS: ACCU-CHEK COMFORT CURVE STRIP VI SCH ×2 (06:08→12:00)
[2023-07-21] MEDS: ENOXAPARIN SOD 40 MG/0.4 ML SYRINGE SC SCH (08:51)
[2023-07-21] MEDS: SODIUM CHLOR 0.9% PF (SALINE LOCK) 10ML VIAL/SYR IV SCH ×2 (08:51→20:54)
[2023-07-21] MEDS: HYDROcodone-ACET 5/325MG TAB PO PRN ×3 (08:52→21:47)
[2023-07-21 08:56] LABS: Alanine Aminotransferase 11 U/L (7-40); Albumin 3.2 g/dL (3.2-4.8); Alkaline Phosphatase 64 U/L (46-116); Anion Gap 3 (5-15); Aspartate Aminotransferase 20 U/L (13-40); BUN/Creatinine Ratio 13.4 (10.0-20.0); Blood Urea Nitrogen 9 mg/dL (9-23); Calcium 8.2 mg/dL (8.7-10.4); Carbon Dioxide 29 mmol/L (20-30); Chloride 106 mmol/L (98-107); Glucose 89 mg/dL (74-106); Magnesium 2.2 mg/dL (1.6-2.6); Sodium 138 mmol/L (136-145)
[2023-07-21 08:57] LABS: Bilirubin, Total 0.2 mg/dL (0.2-1.0); Total Protein 6.1 g/dL (5.7-8.2)
[2023-07-21] MEDS: cefTRIAXone 1GM/50ML D5W 50 ML IV SCH (09:50)
[2023-07-21] MEDS: ONDANSETRON HCL 4 MG/2 ML VIAL IV PRN ×3 (09:58→21:48)
[2023-07-21] MEDS ORDERED: [UNRECOGNIZED DRUG - OTHER] IV NR ×10 (20:00)
[2023-07-21] MEDS ORDERED: SODIUM CHLORIDE IV NR ×10 (20:00)
[2023-07-21] MEDS ORDERED: POTASSIUM PHOSPHATE IV NR ×10 (20:00)
[2023-07-21] MEDS ORDERED: FAT EMULSION IV NR ×10 (20:00)
[2023-07-21] MEDS: SODIUM CHLORIDE 0.9% 1,000 ML IV SCH (21:00)
[2023-07-21] MEDS ORDERED: ONDANSETRON HCL 4 MG/2 ML VIAL ONE (21:40)
[2023-07-22 05:33] VITALS: BP 106/56; PULSE 58; RESP 18; TEMP 98.4; O2SAT 98
[2023-07-22] MEDS: GABAPENTIN 300 MG CAP PO SCH ×3 (06:00→22:18)
[2023-07-22] MEDS: metroNIDAZOLE 500 MG TAB PO SCH ×3 (06:00→22:18)
[2023-07-22] MEDS: VANCOMYCIN HCL 125MG/5ML ORAL SOL PO SCH ×4 (06:01→22:19)
[2023-07-22] MEDS: LEVOTHYROXINE SODIUM 50 MCG TAB PO SCH (06:02)
[2023-07-22] MEDS: HYDROcodone-ACET 5/325MG TAB PO PRN ×3 (06:05→22:18)
[2023-07-22 08:48] LABS: Alanine Aminotransferase 12 U/L (7-40); Albumin 2.8 g/dL (3.2-4.8); Alkaline Phosphatase 51 U/L (46-116); Anion Gap 5 (5-15); Aspartate Aminotransferase 22 U/L (13-40); BUN/Creatinine Ratio 16.2 (10.0-20.0); Blood Urea Nitrogen 11 mg/dL (9-23); Calcium 7.9 mg/dL (8.5-10.1); Carbon Dioxide 28 mmol/L (20-30); Chloride 104 mmol/L (98-107); Glucose 108 mg/dL (74-106); Potassium 3.9 mmol/L (3.5-5.1); Sodium 137 mmol/L (136-145)
[2023-07-22 08:49] LABS: Bilirubin, Total 0.2 mg/dL (0.2-1.0); Phosphorus 3.3 mg/dL (2.4-5.1); Total Protein 5.4 g/dL (5.7-8.2)
[2023-07-22 09:00] VITALS: BP 98/47; PULSE 56; RESP 18; TEMP 98; O2SAT 93
[2023-07-22] MEDS ORDERED: VANC125C3 PO (09:08)
[2023-07-22 09:12] LABS: Magnesium 1.7 mg/dL (1.6-2.6)
[2023-07-22] MEDS: ENOXAPARIN SOD 40 MG/0.4 ML SYRINGE SC SCH (09:38)
[2023-07-22] MEDS: cefTRIAXone 1GM/50ML D5W 50 ML IV SCH (09:38)
[2023-07-22] MEDS: SODIUM CHLOR 0.9% PF (SALINE LOCK) 10ML VIAL/SYR IV SCH ×2 (09:38→22:19)
[2023-07-22 13:00] VITALS: BP 120/72; PULSE 54; RESP 18; TEMP 97.8; O2SAT 100
[2023-07-22] MEDS: ONDANSETRON HCL 4 MG/2 ML VIAL IV PRN ×2 (16:46→22:18)
[2023-07-22] MEDS: SODIUM CHLORIDE 0.9% 1,000 ML IV SCH (16:51)
[2023-07-22 17:00] VITALS: BP 123/69; PULSE 68; RESP 20; TEMP 97.8; O2SAT 98
[2023-07-22 20:00] VITALS: PULSE 58; RESP 16; O2SAT 97
[2023-07-22] MEDS ORDERED: TPN PER PHARMACY IV NR ×10 (20:00)
[2023-07-22 23:44] VITALS: BP 126/66; PULSE 54; RESP 18; TEMP 98.3; O2SAT 97
[2023-07-23] MEDS: HYDROcodone-ACET 5/325MG TAB PO PRN ×2 (04:00→11:52)
[2023-07-23 04:54] VITALS: BP 104/53; PULSE 54; RESP 18; TEMP 98.3; O2SAT 92
[2023-07-23] MEDS: VANCOMYCIN HCL 125MG/5ML ORAL SOL PO SCH ×2 (06:03→11:53)
[2023-07-23] MEDS: metroNIDAZOLE 500 MG TAB PO SCH (06:03)
[2023-07-23] MEDS: LEVOTHYROXINE SODIUM 50 MCG TAB PO SCH (06:03)
[2023-07-23] MEDS: GABAPENTIN 300 MG CAP PO SCH (06:03)
[2023-07-23] MEDS: SODIUM CHLORIDE 0.9% 1,000 ML IV SCH (06:09)
[2023-07-23 06:46] LABS: Alanine Aminotransferase 16 U/L (7-40); Albumin 3.3 g/dL (3.2-4.8); Alkaline Phosphatase 71 U/L (46-116); Anion Gap 4 (5-15); Aspartate Aminotransferase 31 U/L (13-40); BUN/Creatinine Ratio 15.5 (10.0-20.0); Blood Urea Nitrogen 11 mg/dL (9-23); Calcium 8.3 mg/dL (8.7-10.4); Carbon Dioxide 29 mmol/L (20-30); Chloride 105 mmol/L (98-107); Glucose 93 mg/dL (74-106); Phosphorus 3.7 mg/dL (2.4-5.1); Potassium 3.9 mmol/L (3.5-5.1); Sodium 138 mmol/L (136-145)
[2023-07-23 06:47] LABS: Bilirubin, Total 0.2 mg/dL (0.2-1.0); Total Protein 6.1 g/dL (5.7-8.2)
[2023-07-23 07:30] VITALS: PULSE 59
[2023-07-23 08:00] VITALS: PULSE 64; RESP 18; O2SAT 95
[2023-07-23 09:00] VITALS: BP 117/74; PULSE 64; RESP 18; TEMP 98; O2SAT 95
[2023-07-23] MEDS: ENOXAPARIN SOD 40 MG/0.4 ML SYRINGE SC SCH (09:43)
[2023-07-23] MEDS: SODIUM CHLOR 0.9% PF (SALINE LOCK) 10ML VIAL/SYR IV SCH (09:44)
[2023-07-23] MEDS: cefTRIAXone 1GM/50ML D5W 50 ML IV SCH (09:44)
[2023-07-23 10:25] VITALS: BP 117/74; PULSE 64; RESP 18; TEMP 98; O2SAT 95
[2023-07-23] MEDS: ONDANSETRON HCL 4 MG/2 ML VIAL IV PRN (11:52)
[2023-07-23] MEDS ORDERED: LACTCAP20 PO (12:59)
[2023-07-23] MEDS ORDERED: TPN PER PHARMACY IV NR ×10 (20:00)
== END 2023-07-23 12:35 | disposition home health service (06) | DRG 248 ==
LOC: ER 14:16 → TELE 23:23 → TELE-CENTR 07-12 03:22
PROVIDERS: ADMIT Nurse Practitioner Family; ATTEND Hospitalist
PROC: 02HV33Z Insertion of Infusion Device into Superior Vena Cava, Percutaneous Approach (ICD-10-PCS; principal; 2023-07-19)
PROC: B548ZZA Ultrasonography of Superior Vena Cava, Guidance (ICD-10-PCS; 2023-07-19)
DX: A04.72 Enterocolitis due to Clostridium difficile, not specified as recurrent (principal); I31.39 Other pericardial effusion (noninflammatory); E87.20 Acidosis, unspecified; K80.10 Calculus of gallbladder with chronic cholecystitis without obstruction; Q90.9 Down syndrome, unspecified; E07.9 Disorder of thyroid, unspecified; K59.00 Constipation, unspecified; N39.0 Urinary tract infection, site not specified; Z82.5 Family history of asthma and other chronic lower respiratory diseases; Z82.49 Family history of ischemic heart disease and other diseases of the circulatory system
CPT/HCPCS: 36415; 36569; 71045; 71250; 73130; 74176; 74177; 74181; 76705; 78226; 80048; 80053; 80061; 80076; 81001; 81025; 82962; 83036; 83605; 83690; 83735; 83880; 84100; 84443; 84478; 84484; 85007; 85025; 85027; 85610; 85730; 86141; 86850; 86900; 86901; 87040; 87045; 87086; 87427; 87493; 93306; 96365; 96372; 97110; 97116; 97163; 97530; C9113; G0378; J0696; J2001; J2405; J2543; J3480; J7060; J7131; Q0162

== ENCOUNTER 2023-08-06 13:37 | Inpatient (IN) | payer MEDICAID ==
[~2023-08-06] VITALS: Ht 144.8 cm; Wt 47.0 kg
[~2023-08-06 13:37] MED LIST changes: -CEPH-510 PO; +CHOL20007 PO; +GABA-1250 PO; +LACTCAP20 PO; +LEVO150T10 PO; +VANC125C3 PO
[2023-08-06] MEDS ORDERED: ONDANSETRON HCL 4 MG/2 ML VIAL IV PRN (14:00)
[2023-08-06] MEDS ORDERED: DEXTROSE (50%) 50ML SYRG IV PRN (14:00)
[2023-08-06] MEDS: metroNIDAZOLE 500MG/100ML 100 ML IV SCH ×2 (14:00→22:36)
[2023-08-06] MEDS: cefTRIAXone 1GM/50ML D5W 50 ML IV SCH (14:19)
[2023-08-06 16:46] VITALS: PULSE 69; RESP 19; O2SAT 97
[2023-08-06 17:00] VITALS: BP 106/79; PULSE 88; RESP 20; TEMP 97.8; O2SAT 96
[2023-08-06] MEDS: InsuLIN REG 1unit/0.01ml Soln (100units/ml) SC SCH (17:03)
[2023-08-06] MEDS: ACCU-CHEK COMFORT CURVE STRIP VI SCH (17:04)
[2023-08-06 17:23] LABS: Urine Bacteria NONE SEEN /hpf (None Seen); Urine Blood Negative /uL (Negative); Urine Clarity Clear (Clear); Urine Color Yellow (Yellow); Urine Protein, UAD Negative (Negative); Urine Specific Gravity 1.015 (1.001-1.035); Urine Urobilinogen Normal (Negative); Urine WBC <1 /hpf (0 - 5); Urine pH 7.5 (5.0-8.0)
[2023-08-06] MEDS ORDERED: GABAPENTIN 300 MG CAP PO ONE (17:45)
[2023-08-06] MEDS: D5W/SOD CHLO 0.9% 1,000 ML IV SCH (19:49)
[2023-08-06 20:00] VITALS: PULSE 89; RESP 18; O2SAT 88
[2023-08-06] MEDS: GABAPENTIN 300 MG CAP PO SCH (22:14)
[2023-08-06 22:42] VITALS: BP 123/79; PULSE 89; RESP 20; TEMP 98.1; O2SAT 88
[2023-08-07] VITALS (7 sets, daily range): BP systolic 108–131; BP diastolic 54–91; PULSE 51–93; RESP 18–21; TEMP 97.2–98.1; O2SAT 75–100
[2023-08-07 00:03] LABS: Basophils # (auto) 0.1 10 ^3/uL (0-0.2); Basophils % (auto) 2.1 % (0.0-2.0); Eosinophils # (auto) 0 10 ^3/uL (0-0.8); Eosinophils % (auto) 0.6 % (0.0-7.0); Hematocrit 34.6 % (36.0-46.0); Hemoglobin 11.6 g/dL (12.2-16.2); Lymphocytes # (auto) 1.5 10 ^3/uL (0.4-5.4); Lymphocytes % (auto) 30.2 % (10.0-50.0); Mean Corpuscular Hemoglobin 33.1 pg (28.0-32.0); Mean Corpuscular Hgb Conc. 33.6 g/dL (32.0-36.0); Mean Corpuscular Volume 98.5 fL (80.0-100.0); Monocytes # (auto) 0.5 10 ^3/uL (0-1.3); Monocytes % (auto) 10.3 % (0.0-12.0); Neutrophils # (auto) 2.8 10 ^3/uL (1.6-8.6); Neutrophils % (auto) 56.8 % (37.0-80.0); Nucleated Red Blood Cells % 0.2 %; Red Blood Cells 3.52 10^6/uL (4.0-5.20); Red Cell Distribution Width 17.2 % (11.8-14.3); White Blood Cell 4.9 10^3/uL (4.4-10.8)
[2023-08-07 00:17] LABS: Alanine Aminotransferase 47 U/L (7-40); Albumin 3.6 g/dL (3.2-4.8); Alkaline Phosphatase 116 U/L (46-116); Anion Gap 6 (5-15); Aspartate Aminotransferase 27 U/L (13-40); BUN/Creatinine Ratio 12.3 (10.0-20.0); Blood Urea Nitrogen 8 mg/dL (9-23); Calcium 9.1 mg/dL (8.5-10.1); Carbon Dioxide 29 mmol/L (20-30); Chloride 105 mmol/L (98-107); Glucose 85 mg/dL (74-106); Potassium 3.7 mmol/L (3.5-5.1); Sodium 140 mmol/L (136-145)
[2023-08-07 00:18] LABS: Bilirubin, Total 0.7 mg/dL (0.2-1.0); INR 1.28 (0.9-1.15); Partial Thromboplastin Time 30.1 SEC (24.5-34.5); Prothrombin Time 13.2 sec (9.3-11.8)
[2023-08-07 05:20] LABS: Basophils # (auto) 0.1 10 ^3/uL (0-0.2); Eosinophils # (auto) 0 10 ^3/uL (0-0.8); Hematocrit 31.6 % (36.0-46.0); Hemoglobin 10.7 g/dL (12.2-16.2); Lymphocytes # (auto) 1.5 10 ^3/uL (0.4-5.4); Lymphocytes % (auto) 33.5 % (10.0-50.0); Mean Corpuscular Hemoglobin 33.5 pg (28.0-32.0); Mean Corpuscular Hgb Conc. 33.7 g/dL (32.0-36.0); Mean Corpuscular Volume 99.3 fL (80.0-100.0); Monocytes # (auto) 0.5 10 ^3/uL (0-1.3); Monocytes % (auto) 11.6 % (0.0-12.0); Neutrophils # (auto) 2.3 10 ^3/uL (1.6-8.6); Neutrophils % (auto) 51.9 % (37.0-80.0); Nucleated Red Blood Cells % 0.2 %; Red Blood Cells 3.18 10^6/uL (4.0-5.20); Red Cell Distribution Width 17.4 % (11.8-14.3); White Blood Cell 4.4 10^3/uL (4.4-10.8)
[2023-08-07] MEDS: ACCU-CHEK COMFORT CURVE STRIP VI SCH ×2 (05:40)
[2023-08-07] MEDS: InsuLIN REG 1unit/0.01ml Soln (100units/ml) SC SCH ×2 (05:41)
[2023-08-07 05:43] LABS: Alanine Aminotransferase 40 U/L (7-40); Alkaline Phosphatase 101 U/L (46-116); Anion Gap 6 (5-15); Aspartate Aminotransferase 22 U/L (13-40); BUN/Creatinine Ratio 11.7 (10.0-20.0); Blood Urea Nitrogen 9 mg/dL (9-23); Calcium 8.1 mg/dL (8.5-10.1); Carbon Dioxide 27 mmol/L (20-30); Chloride 109 mmol/L (98-107); Glucose 355 mg/dL (74-106); Potassium 3.3 mmol/L (3.5-5.1); Sodium 142 mmol/L (136-145)
[2023-08-07 05:44] LABS: Bilirubin, Total 0.6 mg/dL (0.2-1.0); Total Protein 5.8 g/dL (5.7-8.2)
[2023-08-07] MEDS: LEVOTHYROXINE SODIUM 50 MCG TAB PO SCH (06:40)
[2023-08-07] MEDS: CHOLECALCIFEROL (VITD3) 1,000UNIT=25mCg TAB PO SCH (09:42)
[2023-08-07] MEDS: cefTRIAXone 1GM/50ML D5W 50 ML IV SCH (09:42)
[2023-08-07] MEDS: GABAPENTIN 300 MG CAP PO SCH ×2 (09:42→22:00)
[2023-08-07] MEDS: FAMOTIDINE (10MG/ML) 2ML VL IV SCH (09:44)
[2023-08-07] MEDS: D5W/SOD CHLO 0.9% 1,000 ML IV SCH ×2 (09:46→16:40)
[2023-08-07] MEDS ORDERED: POTASSIUM CHL 20MEQ/100ML 100 ML IV ONE (12:00)
[2023-08-07] MEDS: metroNIDAZOLE 500MG/100ML 100 ML IV SCH ×2 (14:34→22:28)
[2023-08-07] MEDS: MORPHINE SULFATE INJ 2 MG/ml SYRG IV PRN (17:03)
[2023-08-07 21:17] LABS: Magnesium 1.9 mg/dL (1.6-2.6)
[2023-08-08] MEDS: MORPHINE SULFATE INJ 2 MG/ml SYRG IV PRN ×3 (04:09→21:49)
[2023-08-08 05:12] VITALS: BP 130/73; PULSE 51; RESP 18; TEMP 97.8; O2SAT 20
[2023-08-08 06:08] LABS: Basophils # (auto) 0 10 ^3/uL (0-0.2); Eosinophils # (auto) 0 10 ^3/uL (0-0.8); White Blood Cell 4.3 10^3/uL (4.4-10.8)
[2023-08-08 06:10] LABS: Basophils % (auto) 0.7 % (0.0-2.0); Hematocrit 32.6 % (36.0-46.0); Hemoglobin 11.2 g/dL (12.2-16.2); Lymphocytes % (auto) 23.1 % (10.0-50.0); Mean Corpuscular Hemoglobin 34.3 pg (28.0-32.0); Mean Corpuscular Hgb Conc. 34.3 g/dL (32.0-36.0); Mean Corpuscular Volume 99.8 fL (80.0-100.0); Monocytes # (auto) 0.6 10 ^3/uL (0-1.3); Monocytes % (auto) 13.1 % (0.0-12.0); Neutrophils # (auto) 2.7 10 ^3/uL (1.6-8.6); Neutrophils % (auto) 62.1 % (37.0-80.0); Nucleated Red Blood Cells % 0.3 %; Red Blood Cells 3.27 10^6/uL (4.0-5.20); Red Cell Distribution Width 17.7 % (11.8-14.3)
[2023-08-08] MEDS ORDERED: ceFAZolin 1GM/50ML 100 ML IV ONE (06:15)
[2023-08-08] MEDS: metroNIDAZOLE 500MG/100ML 100 ML IV SCH ×3 (06:35→21:57)
[2023-08-08] MEDS: LEVOTHYROXINE SODIUM 50 MCG TAB PO SCH (07:00)
[2023-08-08] MEDS ORDERED: fentaNYL CITRATE 100 MCG/2 ML VL ONE (07:03)
[2023-08-08] MEDS ORDERED: PROPOFOL 10 MG/ML 20 ML IV ONE (07:03)
[2023-08-08] MEDS ORDERED: SUCCINYLCHOLINE CHLORIDE 20 MG/ML 10ML VIAL IV ONE (07:08)
[2023-08-08] MEDS ORDERED: LIDOCAINE 1%-Mpf/Epinephrine 1:200,000 30ml VIAL ONE (07:20)
[2023-08-08] MEDS ORDERED: BUPIVACAINE HCL 0.25% P/F 10 ML VIAL ONE (07:20)
[2023-08-08] MEDS ORDERED: ONDANSETRON HCL 4 MG/2 ML VIAL ONE ×2 (07:45→08:10)
[2023-08-08] MEDS ORDERED: ePHEDrine SULFATE 50 MG/ML AMP ONE (07:45)
[2023-08-08] MEDS ORDERED: ROCURONIUM 10MG/ML 10ML VIAL IV ONE (07:45)
[2023-08-08] MEDS ORDERED: MEPERIDINE HCL (25 MG/ML) 1ML VIAL ONE ×2 (07:52→08:24)
[2023-08-08] MEDS ORDERED: DexAMETHasone SOD PHOS 10MG/1ML VIAL INJ ONE (08:10)
[2023-08-08] MEDS ORDERED: GLYCOPYRROLATE 0.2 MG/ML 1ML VIAL ONE (08:15)
[2023-08-08] MEDS ORDERED: SUGAMMADEX 200mg/2ml Vial (100MG/ML) IV ONE (08:17)
[2023-08-08] MEDS ORDERED: MEPERIDINE HCL (25 MG/ML) 1ML VIAL IV PRN (08:45)
[2023-08-08] MEDS ORDERED: ONDANSETRON HCL 4 MG/2 ML VIAL IV PRN (08:45)
[2023-08-08] MEDS ORDERED: HYDROmorphone HCL 2 MG/ML VL/or syr IV PRN (08:45)
[2023-08-08] MEDS: cefTRIAXone 1GM/50ML D5W 50 ML IV SCH (09:00)
[2023-08-08 10:00] VITALS: PULSE 53; RESP 18; O2SAT 100
[2023-08-08 12:00] VITALS: BP 116/75; PULSE 68; RESP 20; TEMP 97.5; O2SAT 100
[2023-08-08] MEDS: GABAPENTIN 300 MG CAP PO SCH ×2 (12:34→21:47)
[2023-08-08] MEDS: CHOLECALCIFEROL (VITD3) 1,000UNIT=25mCg TAB PO SCH (12:34)
[2023-08-08] MEDS: FAMOTIDINE (10MG/ML) 2ML VL IV SCH (12:34)
[2023-08-08 16:00] VITALS: BP 97/59; PULSE 94; RESP 20; TEMP 98.3; O2SAT 97
[2023-08-08 20:00] VITALS: PULSE 106
[2023-08-08 22:00] VITALS: BP 122/67; PULSE 77; RESP 18; TEMP 98.7; O2SAT 94
[2023-08-09 05:00] VITALS: BP 96/48; PULSE 70; RESP 16; TEMP 97.5; O2SAT 96
[2023-08-09] MEDS: metroNIDAZOLE 500MG/100ML 100 ML IV SCH ×2 (05:35→14:00)
[2023-08-09] MEDS: LEVOTHYROXINE SODIUM 50 MCG TAB PO SCH (05:37)
[2023-08-09 05:53] VITALS: BP 98/58
[2023-08-09] MEDS ORDERED: GABA-1250 PO (06:02)
[2023-08-09 06:08] LABS: Basophils # (auto) 0 10 ^3/uL (0-0.2); Eosinophils # (auto) 0 10 ^3/uL (0-0.8); Hemoglobin 10.3 g/dL (12.2-16.2); Lymphocytes # (auto) 0.9 10 ^3/uL (0.4-5.4); Lymphocytes % (auto) 6.9 % (10.0-50.0); Monocytes # (auto) 1.1 10 ^3/uL (0-1.3)
[2023-08-09 06:10] LABS: Basophils % (auto) 0.3 % (0.0-2.0); Hematocrit 30.6 % (36.0-46.0); Mean Corpuscular Hemoglobin 34.2 pg (28.0-32.0); Mean Corpuscular Hgb Conc. 33.6 g/dL (32.0-36.0); Mean Corpuscular Volume 101.8 fL (80.0-100.0); Monocytes % (auto) 8.3 % (0.0-12.0); Neutrophils # (auto) 10.8 10 ^3/uL (1.6-8.6); Neutrophils % (auto) 84.5 % (37.0-80.0); Red Cell Distribution Width 18.2 % (11.8-14.3); White Blood Cell 12.8 10^3/uL (4.4-10.8)
[2023-08-09 06:11] LABS: Alanine Aminotransferase 57 U/L (7-40); Albumin 3.2 g/dL (3.2-4.8); Alkaline Phosphatase 91 U/L (46-116); Anion Gap 8 (5-15); Aspartate Aminotransferase 62 U/L (13-40); BUN/Creatinine Ratio 7.4 (10.0-20.0); Bilirubin, Total 0.5 mg/dL (0.2-1.0); Blood Urea Nitrogen 6 mg/dL (9-23); Calcium 8.9 mg/dL (8.5-10.1); Carbon Dioxide 27 mmol/L (20-30); Chloride 107 mmol/L (98-107); Glucose 105 mg/dL (74-106); Potassium 3.7 mmol/L (3.5-5.1); Sodium 142 mmol/L (136-145); Total Protein 6.4 g/dL (5.7-8.2)
[2023-08-09] MEDS: GABAPENTIN 300 MG CAP PO SCH ×2 (06:43→12:37)
[2023-08-09] MEDS ORDERED: LEVO25TA6 PO (06:47)
[2023-08-09] MEDS ORDERED: CHOL20TA PO (06:47)
[2023-08-09 08:00] VITALS: BP 110/47; PULSE 48; PULSE 49; PULSE 60; RESP 15; RESP 20; TEMP 97.6; O2SAT 96; O2SAT 97
[2023-08-09] MEDS: FAMOTIDINE (10MG/ML) 2ML VL IV SCH (09:01)
[2023-08-09] MEDS: CHOLECALCIFEROL (VITD3) 1,000UNIT=25mCg TAB PO SCH (09:01)
[2023-08-09] MEDS: cefTRIAXone 1GM/50ML D5W 50 ML IV SCH (09:01)
[2023-08-09 12:00] VITALS: BP 103/42; PULSE 58; RESP 20; TEMP 98.1; O2SAT 94
[2023-08-09] MEDS ORDERED: HYDROcodone-ACET 5/325MG TAB PO ONE (12:45)
[2023-08-09] MEDS ORDERED: HYDR-4902 PO (12:45)
[2023-08-09 14:24] VITALS: BP 103/42; PULSE 58; RESP 16
[2023-08-09] MEDS: MORPHINE SULFATE INJ 2 MG/ml SYRG IV PRN (14:24)
== END 2023-08-09 15:00 | disposition home or self-care (01) | DRG 263 ==
LOC: TELE-CENTR 13:37 → CENTRAL 13:45 → TELE-CENTR 14:37
PROVIDERS: ADMIT Surgery; ATTEND Hospitalist
PROC: 0FT44ZZ Resection of Gallbladder, Percutaneous Endoscopic Approach (ICD-10-PCS; principal; 2023-08-08 07:33)
DX: K80.00 Calculus of gallbladder with acute cholecystitis without obstruction (principal); G89.29 Other chronic pain; Q90.9 Down syndrome, unspecified; Z82.49 Family history of ischemic heart disease and other diseases of the circulatory system
CPT/HCPCS: 36415; 71045; 76705; 80053; 81001; 81025; 83735; 84132; 84439; 84443; 85025; 85610; 85730; 86850; 86900; 86901; 87081; 87493; 97116; 97163; G0378; J0330; J0690; J0696; J1100; J2405; J2704; J3480; J3490; J7042

== ENCOUNTER 2025-04-13 06:53 | Emergency (ER) | payer MEDICAID ==
[~2025-04-13] VITALS: Ht 147.3 cm; Wt 46.2 kg
[~2025-04-13 06:53] MED LIST changes: +HYDR-4902 PO; -LACTCAP20 PO; +LEVO25TA6 PO
--- NOTE | 2025-04-13 08:55 | ED.PDOC ---
History of Present Illness HPI Comments 50-year-old female w/ hx of autism presents with caregiver with a chief complaint of flu-like symptoms x September 2024. Per caregiver, who is also patient's brother, patient has been dealing with flu- like symptoms since having surgery on her neck in August 2024. Patient is experiencing coughing fits, with phlegm, but caregiver states that patient does not know how to spit out the phlegm. Patient has been taking M Started September 2024 Also with coughing Therapies tried Mucinex COVID-19 exposure: None that they know of Denies fevers chills night sweats unintentional weight loss Denies persistent chest pain, shortness of breath, leg swelling Denies history of asthma nor any breathing conditions Denies history of pneumonia Denies recent international travel Chief Complaint: Flu like Time Seen by MD: 08:10 Primary Care Provider: LEA Reviewed Notes: Nurses Notes, Medications, Allergies Allergies: Coded Allergies: NO KNOWN ALLERGIES (Unverified , 03/18/23) Home Meds Active Scripts Hydrocodone-Acetaminophen (Hydrocodone Bitartrate/AC 5-325 mg) 1 Tab Tab, 1 TAB PO Q6HPRN PRN, #14 TAB Prov:JOSE GAYLE MD 08/09/23 Vancomycin HCl (Vancomycin HCl) 125 Mg Cap, 125 MG PO QID, #50 CAP Prov:JOSE GAYLE MD 07/22/23 Reported Medications Levothyroxine Sodium (Levothyroxine Sodium) 25 Mcg Tab, 50 MCG PO DAILY, MCG 08/09/23 Gabapentin (Gabapentin) 300 Mg Cap, 300 MG PO TID for 30 Days, MG 08/09/23 Levothyroxine Sodium (Levothyroxine Sodium) 150 Mcg Tab, 50 MCG PO, TAB 07/12/23 Cholecalciferol (VITAMIN D3) 2,000 Unit Tab, 1 TAB PO DAILY, #30 TAB 5 Refills 07/12/23 Information Source: Relative (Sibling) Mode of Arrival: Wheelchair Severity: Moderate Timing: Months Duration: Since onset Prehospital treatment: None Past Medical History PAST MEDICAL HISTORY: Thyroid Past Medical History (Other): DOWN SYNDROME, NEUROPATHY Surgical History (Other): NECK SURGERY [employer]BI[employer] 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 MOBILE [employer] EQUIPMENT OPERATOR History Family History Family History: No family hx of Cancer, No family hx of DM, No family hx of Heart sergo Social History Smoker: Non-Smoker Alcohol: Denies ETOH Use Drugs: Denies Drug Use Lives In: Home Constitutional: denies: chills, diaphoresis, fatigue, fever, malaise, sweats, weakness, others EENTM: denies: blurred vision, double vision, ear bleeding, ear discharge, ear drainage, ear pain, ear ringing, eye pain, eye redness, hearing loss, mouth pain, mouth swelling, nasal discharge, nose bleeding, nose congestion, nose pa in, photophobia, tearing, throat pain, throat swelling, voice changes, others Respiratory: reports: cough; denies: hemoptysis, orthopnea, SOB at rest, shortness of breath, SOB with excertion, stridor, wheezing, others Cardiovascular: denies: chest pain, dizzy spells, diaphoresis, Dyspnea on exertion, edema, irregular heart beat, left arm pain, lightheadedness, palpitations, PND, syncope, others Gastrointestinal: denies: abdomen distended, abdominal pain, blood streaked bowels, constipated, diarrhea, dysphagia, difficulty swallowing, hematemesis, m vargas, nausea, poor appetite, poor fluid intake, rectal bleeding, rectal pain, vomiting, others Genitourinary: denies: abnormal vagina bleeding, burning, dyspareunia, dysuria, flank pain, frequency, hematuria, incontinence, pain, , vagina discharge, urgency, others Neurological: denies: dizziness, fainting, headache, left sided numbness, left sided weakness, numbness, paresthesia, pre-existing deficit, right sided numbness, right sided weakness, seizure, speech problems, tingling, tremors, weakness, others Musculoskeletal: denies: back pain, gout, joint pain, joint swelling, muscle pain, muscle stiffness, neck pain, others Integumetry: denies: bruises, change in color, change in hair/nails, dryness, laceration, lesions, lumps, rash, wounds, others Allergic/Immunocompromised: denies: Difficulty Healing, Frequent Infections, Hives, Itching, others Hematologic/Lymphatic: denies: anemia, blood clots, easy bleeding, easy bruising, swollen glands, others Endocrine: denies: excessive hunger, excessive sweating, excessive thirst, excessive urination, flushing, intolerance to cold, intolerance to heat, unexpla ined weight gain, unexplained weight loss, others Psychiatric: denies: anxiety, bipolar disorder, depression, hopeless, panic disorder, schizophrenia, sleepless, suicidal, others All Other Systems: Reviewed and Negative Physical Exam General Appearance: No Apparent Distress, Normal HEENT: Normal ENT Inspection, Pharynx Normal, TMs Normal, Other Neck: Full Range of Motion, Non-Tender, Normal, Normal Inspection Respiratory: Chest Non-Tender, Crackles, No Accessory Muscle Use, No Respiratory Distress, Other Cardiovascular: No JVD, No Murmur, No Gallop, Regular Rate/Rhythm Breast Exam: Deferred Gastrointestinal: No Organomegaly, Non Tender, No Pulsatile Mass, Normal Bowel Sounds, Soft Genitalia: Deferred Pelvic: Deferred Rectal: Deferred Extremities: No calf tenderness, Normal capillary refill, Normal inspection, Normal range of motion, Non-tender, No pedal edema Musculoskeletal : Apperance: Normal Neurologic: Alert, correspondence specialist II-XII nml as Tested, No Motor Deficits, Normal Affect, Normal Mood, No Sensory Deficits Cerebellar Function: Normal Reflexes: Normal Skin: Dry, Normal Color, Warm Lymphatic: No Adenopathy Was a procedure done? Was a procedure done?: No Differential Dx Considerations may include: pna, bronchitis, viral X-Ray, Labs, Meds, VS Vital Signs Date Time Temp Pulse Resp B/P (MAP) Pulse Ox O2 Delivery O2 Flow Rate FiO2 04/13/25 07:25 99.3 61 16 180/103 (128) 98 99.3 PATIENT: DIDI NAVALACCT: [id number]: [id number] : 1975 LOC: ER ROOM / BED: / AGE / SEX: 50 / F ADM STATUS: REG ER SERVICE [id number] ORDERING PHYSICIAN: BG HAMMER NP PROCEDURE(s): CXR2 - CHEST TWO VIEWS ROUTINE REASON: R/o PNA ORDER NUMBER(s): [id number], ACCESSION NUMBER(s): [id number] EXAM: XY CHEST TWO VIEWS ROUTINE CLINICAL HISTORY: Pain; R/o PNA COMPARISON: None TECHNIQUE: Frontal and lateral view of the chest was obtained FINDINGS: Lines and Tubes: None Lungs: No focal consolidation. Mild pulmonary vascular congestion. Pleura: No effusion. No pneumothorax. Cardiomediastinal contours: Unremarkable Bones: No acute osseous abnormality. IMPRESSION: Mild pulmonary vascular congestion. No focal consolidation. ATED BY: CHRISTY DENNY MD DICTATED DATE/TIME: 04/13/25919 SIGNED BY: CHRISTY DENNY MD SIGNED DATE/TIME: 04/13/25919 CC: X-Ray, Labs, Meds, VS Comment 50-year-old female presents with caregiver with a chief complaint of flu-like symptoms x September 2024. Patient arrives alert and oriented, ABC's intact, afebrile, vital signs stable, saturating well in room air Diagnostic imaging ordered by me and results interpreted by radiology : CXR: Mild pulmonary vascular congestion. No focal consolidation. The patient is overall well-appearing nontoxic on exam. Oxygen stable on room air. Chest x-ray was obtained and interpreted independently by myself as not showing focal consolidation or lobar pneumonia Low suspicion of strep pharyngitis given physical exam findings and patient's presenting symptoms No signs of meningismus on exam Overall, the patient is well hydrated and nontoxic. Plan for Empiric tx. The patient was able to tolerate p.o. intake in the ED. at this time, patient is safe for discharge home. The exam findings and plan discussed. We will discharge home with PCP follow up and strict return precautions. Discussed that cough can linger up to 6 weeks after viral URI Supportive care and return precautions discussed Recommended vitamin C, rest, handwashing, and symptomatic care. Expect 2-week course with possibly of cough lingering up to 6 weeks. Nonpharmacological remedies for fluids has been recommended as well Inform patient of their elevated blood pressure Today discussed importance of regular exercise Sodium restriction DASH diet Limit or illuminate alcohol intake Patient verbalized understanding Follow-up with PCP Additional MDM Review of External, Non-ED records: External records reviewed. Discussion with independent historian (EMS, family) history obtained from the patient/parents (if applicable) at bedside Chronic conditions affecting care: None Social determinants of health affecting care: None Consideration of admission (observation or admission): I considered escalation of care to admission for this patient, however given the reassuring workup, the patient is safe for outpatient management. Time of 1ST Reevaluation: 08:40 Reevaluation 1ST: Unchanged Time of 2ND Reevaluation: 09:28 Reevaluation 2ND: Improved Patient Education/Counseling: Diagnosis, Treatment, Prognosis Family Education/Counseling: Diagnosis, Treatment, Prognosis SEPSIS Sepsis Screen Date sepsis recognized/suspect: Apr 13, 2025 Time Sepsis recognized/suspect: 724 Recent Procedure: No On Antibiotic Therapy: No Respiratory Rate >20: No Heart Rate >90: No Temp<36 C (96.8 F) or >38.3 C: No SBP <90 or MAP <65 mmHG: No New Acute Mental Status Change: No Is the patient on CPAP, BIPAP,: No Physician Orders Chest Two Views Routine (04/13/25 08:27) Vital Signs Date Time Temp Pulse Resp B/P (MAP) Pulse Ox O2 Delivery O2 Flow Rate FiO2 04/13/25 07:25 99.3 61 16 180/103 (128) 98 99.3 Departure 1 Departure Time of Disposition: 09:32 Impression: Primary Impression: Congestion of respiratory tract Additional Impressions: Bronchitis Elevated blood pressure reading Disposition: HOME / SELF CARE / HOMELESS Condition: Fair e-Prescriptions Amoxicillin & Pot Clavulanate (AUGMENTIN TABLET) 875 Mg Tb 875 MG PO BID for 7 Days, #14 TAB 0 Refills Prov: BG HAMMER NP 04/13/25 Critical Care Note Critical Care Time?: No Stability Stability form required: No Heart Score Heart Score: Heart Score Response (Comments) Value History N/A 0 EKG N/A 0 Age N/A 0 Risk Factors N/A 0 Troponin N/A 0 Total 0 I personally scribed for BG HAMMER TRAINING LEAD ([email or web address]) on 04/13/25 at 08:55. Electronically submitted by Kwame Quintero ([email or web address]). I personally scribed for BG HAMMER TRAINING LEAD ([email or web address]) on 04/13/25 at 09:12. Electronically submitted by Kwame Quintero ([email or web address]). BG HAMMER NP Apr 13, 2025 08:55
--- NOTE | 2025-04-13 09:22 | DVH ---
EXAM: XY CHEST TWO VIEWS ROUTINE CLINICAL HISTORY: Pain; R/o PNA COMPARISON: None TECHNIQUE: Frontal and lateral view of the chest was obtained FINDINGS: Lines and Tubes: None Lungs: No focal consolidation. Mild pulmonary vascular congestion. Pleura: No effusion. No pneumothorax. Cardiomediastinal contours: Unremarkable Bones: No acute osseous abnormality. IMPRESSION: Mild pulmonary vascular congestion. No focal consolidation.
[2025-04-13] MEDS ORDERED: AUG875T PO (09:32)
[2025-04-13 09:36] VITALS: BP 142/106; PULSE 55; RESP 16; TEMP 98.6; O2SAT 98
== END 2025-04-13 09:43 | disposition home or self-care (01) ==
LOC: ER 06:53
DX: J40 Bronchitis, not specified as acute or chronic (principal); R03.0 Elevated blood-pressure reading, without diagnosis of hypertension; E03.9 Hypothyroidism, unspecified; Q90.9 Down syndrome, unspecified; Z79.899 Other long term (current) drug therapy; Z98.890 Other specified postprocedural states
CPT/HCPCS: 71046